=== PATIENT | male | born 1980 | race Caucasian/White ===

== ENCOUNTER 2016-08-19 10:30 | Emergency (ER) | payer SELFPAY | END 2016-08-19 12:20 | disposition home or self-care (01) | LOC: D.ER 10:30 | DX: M54.5 Low back pain (principal); V49.50XA Passenger injured in collision with unspecified motor vehicles in traffic accident, initial encounter; Y93.89 Activity, other specified; Y92.410 Unspecified street and highway as the place of occurrence of the external cause; F17.200 Nicotine dependence, unspecified, uncomplicated ==